=== PATIENT | female | born 1970 | race Caucasian/White ===

== ENCOUNTER 2018-03-20 21:59 | Emergency (ER) | payer BC, OTHER ==
[2018-03-20 22:46] LABS: EOS # 0.3 (0.04-0.40); EOS % 5.1 % (1.0-5.0); HEMATOCRIT 37.9 % (37.0-47.0); HEMOGLOBIN 11.6 g/dL (12.5-16.0); LYMPH# 0.9 (1.50-4.00); MEAN CELL VOLUME 79 fl (78-100); MEAN CORPUSCULAR HEMOGLOBIN 24 pg (27-31); MEAN CORPUSCULAR HGB CONC 31 g/dL (33-37); MEAN PLATELET VOLUME 9.6 fl (7.4-10.4); MONO # 0.5 (0.20-0.80); NEU # 4.2 (1.40-6.50); PLATELET COUNT 317 K/mm3 (130-400); RED CELL DISTRIBUTION WIDTH 14.4 % (11.5-14.5); WHITE BLOOD COUNT 5.9 K/mm3 (4.8-10.8)
[2018-03-20] MEDS ORDERED: LOPRESSOR 225 MG/TAB PO (22:54)
[2018-03-20] MEDS ORDERED: NEXIUM 40MG40 MG PO (22:54)
[2018-03-20] MEDS ORDERED: BUSPIRONE HYDRO10 MG PO (22:54)
[2018-03-20] MEDS ORDERED: NUVIGIL200 MG PO (22:54)
[2018-03-20] MEDS ORDERED: NORCO 10-325 T1 EACH PO (22:56)
[2018-03-20] MEDS ORDERED: IRON90 MG PO (22:56)
[2018-03-20] MEDS ORDERED: IBU600 MG PO (22:58)
[2018-03-20 23:05] LABS: ALBUMIN 4.2 g/dL (3.5-5.0); CALCIUM 9.2 mg/dL (8.4-10.2); TOTAL BILIRUBIN 0.4 mg/dL (0.2-1.3); TOTAL PROTEIN 6.8 g/dL (6.3-8.2)
[2018-03-20] MEDS ORDERED: LOMOTIL TAB 01 UDTAB PO (23:27)
[2018-03-20] MEDS ORDERED: PREMARIN30 GM VG (23:29)
[2018-03-21] MEDS ORDERED: ZOFRAN ODT4 MG PO (01:26)
[2018-03-21 01:38] VITALS: BP 124/86
== END 2018-03-21 01:38 | disposition home or self-care (01) ==
LOC: ED 21:59
PROVIDERS: Family Medicine
DX: R11.2 Nausea with vomiting, unspecified (principal); R10.817 Generalized abdominal tenderness; I10 Essential (primary) hypertension; Z98.84 Bariatric surgery status; K58.9 Irritable bowel syndrome, unspecified; K21.9 Gastro-esophageal reflux disease without esophagitis; G47.419 Narcolepsy without cataplexy; G47.00 Insomnia, unspecified; F41.9 Anxiety disorder, unspecified; Z79.899 Other long term (current) drug therapy; Z86.19 Personal history of other infectious and parasitic diseases
CPT/HCPCS: C9113; J0595; J2405; J7030